=== PATIENT | female | born 1965 | race Two or more races ===

== ENCOUNTER 2022-07-02 22:10 | Emergency (ER) | payer BC, MEDICARE ==
[~2022-07-02] VITALS: Ht 157.5 cm; Wt 61.2 kg
[2022-07-02] MEDS ORDERED: ONDANSETRON 4 MG/2 ML VIAL IV ONE (22:30)
[2022-07-02] MEDS ORDERED: ASPIRIN 81 MG TAB.CHEW PO ONE (22:30)
[2022-07-02] MEDS ORDERED: LORAZEPAM 2 MG/1 ML VIAL IV ONE (22:30)
[2022-07-02] MEDS ORDERED: ASPIRIN 81 MG TAB.CHEW ONE (22:30)
[2022-07-02] MEDS ORDERED: HYDROMORPHONE 1 MG/1 ML DISP.SYRIN IV ONE (22:30)
[2022-07-02] MEDS ORDERED: ONDANSETRON 4 MG/2 ML VIAL ONE (22:30)
[2022-07-02] MEDS ORDERED: LORAZEPAM 2 MG/1 ML VIAL ONE (22:31)
[2022-07-02] MEDS ORDERED: HYDROMORPHONE 1 MG/1 ML DISP.SYRIN ONE (22:31)
--- NOTE | 2022-07-02 22:33 | NUR ---
Covid specimen sent to lab.
[2022-07-02] MEDS ORDERED: TOPI100T PO (22:35)
[2022-07-02] MEDS ORDERED: DULO60CA45 PO (22:35)
[2022-07-02 22:54] LABS: HEMATOCRIT 43.8 % (31.2-41.9); MEAN CORPUSCULAR HEMOGLOBIN 33.2 uug (24.7-32.8); MEAN CORPUSCULAR VOLUME 98.8 fL (75.5-95.3); PLATELET COUNT (AUTO) 325 K/uL (179-408)
[2022-07-02 23:05] LABS: CARBON DIOXIDE 27 mmol/L (21-32); CHLORIDE 100 mmol/L (98-107); CREATININE 0.7 mg/dL (0.6-1.3); GLUCOSE 114 mg/dL (74-106); POTASSIUM 3.5 mmol/L (3.5-5.1); UREA NITROGEN, BLOOD 6 mg/dL (7-18)
[2022-07-02 23:15] LABS: ACETAMINOPHEN < 10.0 ug/mL (10-30)
[2022-07-02] MEDS ORDERED: IV NS 1000 ML 1,000 ML IV ONE (23:15)
[2022-07-02 23:23] LABS: ALANINE AMINOTRANSFERASE 15 U/L (14-59); ALKALINE PHOSPHATASE 111 U/L (50-136); ASPARTATE AMINOTRANSFERASE 14 U/L (15-37); BILIRUBIN,DIRECT 0.1 mg/dL (0.0-0.2); BILIRUBIN,TOTAL 0.4 mg/dL (0.2-1.0)
[2022-07-02 23:25] LABS: THYROID STIMULATING HORMONE 2.463 mIU/mL (0.358-3.740)
[2022-07-02 23:31] LABS: *BILIRUBIN,URIN NEGATIVE (NEGATIVE); *BLOOD, URINE NEGATIVE (NEGATIVE); *CLARITY,URINE CLEAR (CLEAR); *COLOR,URINE LIGHT YELLOW (YELLOW); *KETONES,URINE NEGATIVE (NEGATIVE); *UROBILINOGEN,URINE 0.2 E.U./dl (NORMAL); LEUKOCYTE ESTERASE ,URINE TRACE (NEGATIVE); NITRITE, URINE NEGATIVE (NEGATIVE); UGLUCOSE NEGATIVE (NEGATIVE)
[2022-07-02 23:36] LABS: BACTERIA,URINE FEW /HPF (NONE SEEN); RBC,URINE NONE SEEN /HPF (0-3); SQUAMOUS EPITHELIAL CELL,UR FEW /HPF (NONE SEEN)
[2022-07-02 23:38] LABS: *AMPHETAMINE, URINE NEGATIVE (NEGATIVE); *CANNABINOID, URINE POSITIVE (NEGATIVE); *COCCAINE, URINE NEGATIVE (NEGATIVE); *PHENCYCLIDINE SCREEN,URINE NEGATIVE (NEGATIVE)
[2022-07-02] MEDS ORDERED: TOPIRAMATE 100 MG TABLET PO SCH (23:45)
[2022-07-02] MEDS ORDERED: DULOXETINE 60 MG CAPSULE.DR PO SCH (23:45)
--- NOTE | 2022-07-02 23:48 | NUR ---
[facility] Julianna JONES notified.
--- NOTE | 2022-07-02 23:58 | NUR ---
Called Pediatric Occupational Therapist Quintin, made aware that patient needs psych evaluation. ETA 60 mins
--- NOTE | 2022-07-03 01:19 | NUR ---
Quintin Cai line inspector at bedside, psych evaluation in progress
--- NOTE | 2022-07-03 01:35 | NUR ---
Per Art Capilla critical care nurse specialist, patient does not meet criteria for 51/50 hold
[2022-07-03] MEDS ORDERED: DULO60CA45 PO (01:44)
[2022-07-03] MEDS ORDERED: TOPI100T PO (01:44)
--- NOTE | 2022-07-03 01:50 | NUR ---
Called aric Vasquez [phone]. attempted to nofity that patient is discharged. No answer.
--- NOTE | 2022-07-03 01:51 | NUR ---
lianne Soriano [phone]
--- NOTE | 2022-07-03 01:52 | NUR ---
called patient's emergency contact and next of kin, no answer. Will attempt to try again in the morning
--- NOTE | 2022-07-03 04:00 | NUR ---
Patient ambulated to the restroom with steady gait.
--- NOTE | 2022-07-03 06:23 | NUR ---
lianne Varghese [phone] family listed on patient's demographic data, person answered and denies relationship with the patient
--- NOTE | 2022-07-03 06:26 | NUR ---
Per Dr Katz, patient will stay in ER until seen by a social media executive.
--- NOTE | 2022-07-03 07:15 | NUR ---
Received report from shift mgr. Per report pt has already been discharged from the emergency room and is waiting in room 1B to see a nursing home social worker (as requested by ER physician on duty last night). Received pt alert and oriented, denies any chest pain. Pt states she has a slight headache. Pt states she has a residence, but was unable to call [employer] for a ride as her telephone is out of battery.
--- NOTE | 2022-07-03 07:50 | NUR ---
Pt is eating breakfast, NAD noted.
--- NOTE | 2022-07-03 09:00 | NUR ---
Pt was discharged after speaking with the psychosocial rehabilitation counselor. Pt was given her written ACI and prescriptions. Taxi with a voucher was arranged for the address the pt requested ([address]). Pt ambulated out of ER with steady gait.
--- NOTE | 2022-07-03 09:57 | NUR ---
SW consult for a patient in the emergency department for discharge planning. Patient is a 57 year old female that is alert and oriented X4. Patient presents with anxious mood and congruent affect. Patient states her primary contact is her step son, Jag Soriano ([phone]) and they have a good relationship. SW attempted to call Jag Soriano ([phone]) three times and left a voicemail. Patient states she lives with Jag Soriano ([phone]) at [address] [id number] with his mother, Flora Sanders and his two younger brothers. Patient states she is currently not driving and is not working. Patient denies a history of substance abuse and denies a history of psychiatric diagnosis. Patient denies suicidal or homicidal ideation and auditory or visual hallucinations. Patient was seen by the crisis team, Quintin Bateman LCSW and does not meet criteria for a 5150 hold. QUINN provided the patient with the mental health resource for [facility] [address] [employer] [facility] [address] . Patient states her plan for discharge is to go home to [address] [place], [place] [id number]. QUINN provided the patient with a tax voucher and a new clean shirt and the patient appeared appreciative.
[2022-07-04] MEDS ORDERED: CEPH500T PO (14:33)
== END 2022-07-03 09:11 | disposition home or self-care (01) ==
LOC: ER 22:10
DX: R07.9 Chest pain, unspecified (principal); F22 Delusional disorders; G40.909 Epilepsy, unspecified, not intractable, without status epilepticus; M79.7 Fibromyalgia; M45.9 Ankylosing spondylitis of unspecified sites in spine; Z20.822 Contact with and (suspected) exposure to COVID-19
CPT/HCPCS: 99285; 96374; 71045; 96375; 96361 ×2; 87426; 80076; 80048; 83880; 84443; 85025; 85379; 85730; 84484 ×2; 36415 ×2; 93005; 80299; 80307; 81001; J2060; J2405; J1170; J7040

== ENCOUNTER 2022-07-03 22:58 | Emergency (ER) | payer BC ==
[~2022-07-03] VITALS: Ht 154.9 cm; Wt 54.4 kg
[~2022-07-03 22:58] MED LIST: DULO60CA45 PO; TOPI100T PO
[2022-07-04 03:04] LABS: MEAN CORPUSCULAR HEMOGLOBIN 33.4 uug (24.7-32.8); MEAN CORPUSCULAR VOLUME 99.2 fL (75.5-95.3); PLATELET COUNT (AUTO) 281 K/uL (179-408)
[2022-07-04 03:10] LABS: BILIRUBIN,TOTAL 0.5 mg/dL (0.2-1.0); CREATININE 0.6 mg/dL (0.6-1.3); POTASSIUM 3.5 mmol/L (3.5-5.1)
[2022-07-04 03:14] LABS: ETHANOL < 3 MG/DL (0-0)
[2022-07-04 03:16] LABS: ACETAMINOPHEN < 2.0 ug/mL (10-30)
[2022-07-04 04:54] LABS: *BILIRUBIN,URIN NEGATIVE (NEGATIVE); *BLOOD, URINE 1+ (NEGATIVE); *COLOR,URINE YELLOW (YELLOW); *KETONES,URINE NEGATIVE (NEGATIVE); *UROBILINOGEN,URINE 0.2 E.U./dl (NORMAL); LEUKOCYTE ESTERASE ,URINE 3+ (NEGATIVE); NITRITE, URINE NEGATIVE (NEGATIVE); PH,URINE 6.5 (5.0-8.0); UGLUCOSE NEGATIVE (NEGATIVE)
[2022-07-04 05:03] LABS: *CLARITY,URINE CLOUDY (CLEAR)
[2022-07-04 05:05] LABS: *AMPHETAMINE, URINE NEGATIVE (NEGATIVE); *CANNABINOID, URINE POSITIVE (NEGATIVE); *COCCAINE, URINE NEGATIVE (NEGATIVE); *PHENCYCLIDINE SCREEN,URINE NEGATIVE (NEGATIVE)
[2022-07-04] MEDS ORDERED: OLANZAPINE 10 MG VIAL IM ONE ×2 (05:15→05:22)
[2022-07-04 05:28] LABS: BACTERIA,URINE MODERATE /HPF (NONE SEEN); SQUAMOUS EPITHELIAL CELL,UR FEW /HPF (NONE SEEN); WBC,URINE TNTC /HPF (0-3)
[2022-07-04] MEDS ORDERED: diphenhydrAMINE 50 MG/1 ML VIAL ONE (05:28)
[2022-07-04] MEDS ORDERED: LORAZEPAM 2 MG/1 ML VIAL ONE (05:29)
[2022-07-04] MEDS ORDERED: diphenhydrAMINE 50 MG/1 ML VIAL IM ONE (05:30)
[2022-07-04] MEDS ORDERED: LORAZEPAM 2 MG/1 ML VIAL IM ONE (05:30)
[2022-07-04] MEDS ORDERED: LIDOCAINE HCL 1% 20 ML VIAL IJ ONE (05:45)
[2022-07-04] MEDS ORDERED: CEFTRIAXONE 1 G in IV DEXTROSE 5% 50 ML IV ONE (05:45)
[2022-07-04] MEDS ORDERED: CEFTRIAXONE 1 G VIAL IM ONE (05:45)
[2022-07-04] MEDS ORDERED: IV NORMAL SALINE 500 ML BAG IV ONE (05:45)
[2022-07-04] MEDS ORDERED: CEFTRIAXONE /D5W 50ML IVPB **ER PYXIS IV ONE (06:01)
[2022-07-04] MEDS ORDERED: CYANOCOBALAMIN 1,000 MCG TABLET PO ONE (07:30)
[2022-07-04] MEDS ORDERED: FOLIC ACID 1 MG TABLET PO ONE (07:30)
[2022-07-04] MEDS ORDERED: FOLIC ACID 1 MG TABLET ONE (07:46)
[2022-07-04] MEDS ORDERED: CYANOCOBALAMIN 1,000 MCG TABLET ONE (07:46)
[2022-07-04] MEDS ORDERED: LORAZEPAM 0.5 MG TABLET PO ONE (13:15)
[2022-07-04] MEDS ORDERED: LORAZEPAM 1 MG TABLET ONE (13:56)
[2022-07-04] MEDS ORDERED: CEPH500T PO (14:33)
== END 2022-07-04 14:46 ==
LOC: ER 22:58
DX: F22 Delusional disorders (principal); N39.0 Urinary tract infection, site not specified; Z20.822 Contact with and (suspected) exposure to COVID-19
CPT/HCPCS: 80053; 81001; 85025; 87426; 36415; 70450; 99285; 96365; 96372; 87040; 80299; 80320; 80307; J0696; J1200; J2060; J7040; G0480; J2358